=== PATIENT | female | born 1940 | race Caucasian/White ===

== ENCOUNTER 2018-02-17 17:07 | Emergency (ER) | payer MEDICARE, OTHER ==
[2018-02-17] MEDS ORDERED: ONDANSETRON 4 MG TAB.RAPDIS PO ONE (17:40)
--- NOTE | 2018-02-17 17:40 | ER Document Report ---
ED General - General Chief Complaint: Urinary Problem Stated Complaint: BURNING WITH URINATION, VOMITING Time Seen by Provider: 02/17/18 17:22 Notes: 78-year-old female to emergency department chief complaint of dysuria. Patient states that she has had symptoms on and off for several days. Continues to have frequent episodes of urination. Mejia with pain. Went to the store and bought some [id number] Azo but it has not helped. Now she is beginning to feel a little febrile and nauseated. Denies any significant abdominal pain. Denies any flank pain, chest pain, shortness of breath or other symptoms at this time. TRAVEL OUTSIDE OF THE [place] IN LAST 30 DAYS: No - HPI Onset: Yesterday Onset/Duration: Gradual, Constant, Worse Quality of pain: Burning Severity: Moderate - Related Data Allergies/Adverse Reactions: Penicillins Allergy (Verified 02/17/18 17:11) Past Medical History - General Information source: Patient - Social History Smoking Status: Never Smoker Chew tobacco use (# tins/day): No Frequency of alcohol use: None Drug Abuse: None Lives with: Spouse/Significant other Family History: Reviewed & Not Pertinent Patient has suicidal ideation: No Patient has homicidal ideation: No Renal/ Medical History: Denies: Hx Peritoneal Dialysis Review of Systems - Review of Systems Notes: Constitutional: Complaining of some mild chills and possible fever. No significant weakness EENT: denies: Eye discharge, Blurred vision, Tearing, Double vision, Nose conges tion, Nose discharge, Throat swelling, Mouth pain Cardiovascular: denies: Palpitations, Heart racing, Orthopnea, Dyspnea, Chest pain Respiratory: denies: Cough, Hurts to breathe, Wheezing, Shortness of breath Gastrointestinal: denies: Abdominal pain, Diarrhea, Nausea, Vomiting, Black stools, bright red blood in stool Genitourinary: Complaining of burning with urination and some lower suprapubic cramping. Musculoskeletal: denies: Joint pain, Joint swelling, Muscle pain, Muscle stiffness, back pain Hematologic/Lymphatic: denies: Anemia, Easy bleeding, Easy bruising, Blood clots Neurological/Psychological: denies: Confusion, Dementia, Depression, Loss of consciousness Skin: No lesions, no masses, no skin breakdown, no abscesses Physical Exam - Vital signs Vitals: Temp Pulse Resp BP Pulse Ox 98.7 F 103 H 22 H 110/59 L 92 02/17/18 17:15 02/17/18 17:15 02/17/18 17:15 02/17/18 17:15 02/17/18 17:15 Interpretation: Normal - General General appearance: Appears well, Alert - HEENT Head: Normocephalic, Atraumatic Eyes: Normal Pupils: PERRL Mucous membranes: Normal - Respiratory Respiratory status: No respiratory distress Chest status: Nontender Breath sounds: Normal Chest palpation: Normal - Cardiovascular Rhythm: Tachycardia Heart sounds: Normal auscultation Murmur: No - Abdominal Inspection: Normal Distension: No distension Bowel sounds: Normal Tenderness: Nontender Organomegaly: No organomegaly - Back Back: Normal, Nontender. No: CVA tenderness - Extremities General upper extremity: Normal inspection, Nontender, Normal color, Normal ROM, Normal temperature General lower extremity: Normal inspection, Nontender, Normal color, Normal ROM, Normal temperature, Normal weight bearing. No: Chris's sign - Skin Skin Temperature: Warm Skin Moisture: Dry Skin Color: Normal Course - Re-evaluation Re-evalutation: 02/17/18 19:10 Laboratory 02/17/18 02/17/18 02/17/18 17:52 18:35 18:35 POC Glucose 180 H Urine Color TAVON Urine Appearance CLOUDY Urine pH 5.[address] 1.012 Urine Protein >=500 H Urine Glucose (UA) NEGATIVE Urine Ketones NEGATIVE Urine Blood MODERATE H Urine Nitrite POSITIVE H Urine Bilirubin NEGATIVE Urine Urobilinogen 4.0 H Ur Leukocyte Esterase TRACE H Urine WBC (Auto) >182 Urine RBC (Auto) 61 Urine Bacteria (Auto) 1+ Urine WBC Clumps MANY Squamous Epi Cells Auto 5 U Non-Squamous Epis Auto 4 Urine Mucus (Auto) MANY Urine Creatinine 146.6 Urine Ascorbic Acid NEGATIVE 02/17/18 19:11 Urine is significant for UTI. Patient does not appear septic. Not febrile. Tolerating p.o. Will start her on Bactrim as she is allergic to penicillin. Does not meet criteria in my opinion for a rox quinolone. We have given her an additional dose of Pyridium. We also gave her some ibuprofen. Patient encouraged to return in the event that she is unable to keep medications down or for any worsening symptoms or concerns. - Vital Signs Vital signs: Temp Pulse Resp BP Pulse Ox 98.7 F 103 H 22 H 110/59 L 92 02/17/18 17:15 02/17/18 17:15 02/17/18 17:15 02/17/18 17:15 02/17/18 17:15 - Laboratory Laboratory results interpreted by me: 02/17/18 02/17/18 17:52 18:35 POC Glucose 180 H Urine Protein >=500 H Urine Blood MODERATE H Urine Nitrite POSITIVE H Urine Urobilinogen 4.0 H Ur Leukocyte Esterase TRACE H Discharge - Discharge Clinical Impression: Urinary tract infection Qualifiers: Urinary tract infection type: acute cystitis Hematuria presence: without hematuria Qualified Code(s): N30.00 - Acute cystitis without hematuria Condition: Good Disposition: HOME, SELF-CARE Instructions: Trimethoprim-Sulfa ([facility]), Urinary Tract Infection ([facility]) Additional Instructions: If you develop worsening symptoms, severe flank pain, unable to take your medications because your vomiting, severe lower abdominal pain or any other concerns please return for repeat evaluation. Prescriptions: Ondansetron [Zofran Odt 4 mg Tablet] 1 - 2 tab PO Q4H PRN #15 tab.rapdis PRN Reason: For Nausea/Vomiting Phenazopyridine HCl [Pyridium 100 Mg Tablet] 100 mg PO TID PRN 5 Days #15 tablet PRN Reason: Sulfamethoxazole/Trimethoprim [Bactrim Ds Tablet] 1 each PO BID 5 Days #10 tablet
[2018-02-17 18:49] LABS: APPEARANCE,URINE CLOUDY; BILIRUBIN,URINE NEGATIVE (NEGATIVE); COLOR,URINE AMBER; GLUCOSE, URINE NEGATIVE (NEGATIVE); KETONES,URINE NEGATIVE (NEGATIVE); LEUKOCYTE ESTERASE,URINE TRACE (NEGATIVE); NITRITE,URINE POSITIVE (NEGATIVE); PROTEIN,URINE >=500 mg/dL (NEGATIVE); URINE SPECIFIC GRAVITY 1.012
[2018-02-17] MEDS ORDERED: IBUPROFEN 400 MG TABLET PO ONE (19:07)
[2018-02-17] MEDS ORDERED: PHENAZOPYRIDINE HCL 100 MG TABLET PO ONE (19:07)
[2018-02-17] MEDS ORDERED: SULFAMETHOXAZOLE/TRIMETHOPRIM 800-160 MG TABLET PO ONE (19:07)
[2018-02-17 19:24] VITALS: BP 110/62
== END 2018-02-17 19:25 | disposition home or self-care (01) ==
LOC: ER 17:07
DX: N30.00 Acute cystitis without hematuria (principal); Z88.0 Allergy status to penicillin
CPT/HCPCS: 99283; 87086; 82962; 82570; 87088; 81001; 87186; A9270 ×4; J3490; S0119